=== PATIENT | female | born 1990 | race African-American/Black ===

== ENCOUNTER 2017-02-23 01:40 | Emergency (ER) | payer OTHER ==
[~2017-02-23] VITALS: Ht 162.6 cm; Wt 75.0 kg
[~2017-02-23 01:40] MED LIST: ALBU0.086 INH; ALBU6.7H INH; BUPR-197 PO; HYDR50TA15 PO; LORTA10 PO; MIREIUD IU; NAPR550 PO; SERT-129 PO; ZOFR4TAB3 SL
[2017-02-23 01:42] VITALS: BP 138/91; PULSE 107; RESP 16; TEMP 97.8; O2SAT 99
[2017-02-23] MEDS ORDERED: HYDR50TA94 PO (02:16)
[2017-02-23] MEDS ORDERED: MELO-1 PO (02:16)
[2017-02-23] MEDS ORDERED: BUSP30TA PO (02:16)
[2017-02-23] MEDS ORDERED: SERT-129 PO (02:16)
[2017-02-23] MEDS ORDERED: ZOLP10TA3 PO (02:16)
[2017-02-23] MEDS ORDERED: PRAZ2CAP PO (02:16)
--- NOTE | 2017-02-23 02:21 | PD ---
HPI Chief Complaint: Psychiatric Symptoms Time Seen by Provider: 02:17 Travel History International Travel<30 days: No Contact w/Intl Traveler<30days: No Traveled to known affect area: No History of Present Illness HPI 26-year-old black female presents to emergency department on a voluntary basis requesting psychological evaluation. She states that she is 100% service connected for PTSD. She states that she's been feeling more depressed today and having suicidal thoughts. She was seen at the [facility] 2 days ago but was not feeling suicidal and depressed at that time. She states that she just broke up with her boyfriend which has caused her to feel this way. She states that she plans on getting "very bloody". She declines to elaborate. She denies any homicidal ideation. No toxic ingestions. She denies any alcohol or drugs currently. Denies . PFSH Past Medical History Narrative Medical Asthma, PTSD, DJD Arthritis: No Asthma: Yes Anxiety: Yes Depression: Yes Heart Rhythm Problems: No Cancer: No Cardiovascular Problems: No High Cholesterol: No Chest Pain: No Congestive Heart Failure: No COPD: No Cerebrovascular Accident: No Diabetes: No Diminished Hearing: No Endocrine: No Gastrointestinal Disorders: No Genitourinary: No Hepatitis: No Hiatal Hernia: No Hypertension: No Immune Disorder: No Musculoskeletal: No Neurologic: No Psychiatric: Yes (PTSD) Reproductive: No Respiratory: Yes (ASTHMA) Migraines: No Seizures: No Sleep Apnea: No Thyroid Disease: No Tetanus Vaccination: < 5 Years ?: Not LMP: UNKNOWN : 2 Para: 0 Miscarriage: 0 : 2 Dilation and Curettage (D&C): Yes (X2) Past Surgical History Narrative Surgical Left shoulder arthroscopy, abortions 2 Abdominal Surgery: No AICD: No Cardiac Surgery: No Ear Surgery: No Endocrine Surgery: No Eye Surgery: No Genitourinary Surgery: No Gynecologic Surgery: No Joint Replacement: No Neurologic Surgery: No Oral Surgery: No Pacemaker: No Thoracic Surgery: No Other Surgery: Yes (IUD PLACED) Social History Alcohol Use: Yes Tobacco Use: Yes Substance Use: No Allergies-Medications (Allergen,Severity, Reaction): Coded Allergies: Paroxetine (Verified Allergy, Severe, 03/19/14) Reported Meds & Prescriptions Reported Meds & Active Scripts Active Reported Meloxicam 15 Mg Tab 15 Mg PO DAILY Hydroxyzine HCl 50 Mg Tab 50 Mg PO DAILY Buspirone (Buspirone HCl) 30 Mg Tab 30 Mg PO BID Sertraline (Sertraline HCl) 100 Mg Tab 200 Mg PO DAILY Zolpidem (Zolpidem Tartrate) 10 Mg Tab 5 Mg PO HS PRN Prazosin (Prazosin HCl) 2 Mg Cap 2 Mg PO BID Review of Systems Except as stated in HPI: all other systems reviewed are Neg Psychiatric: Positive: Depression, Suicidal Ideations, Mood Disorder, No: Anxiety, Disorder of Thought, Substance Abuse, Homicidal Ideation Physical Exam Narrative GENERAL: Well-nourished, well-developed patient. SKIN: Warm and dry. HEAD: Normocephalic and atraumatic. EYES: No scleral icterus. No injection or drainage. ENT: No nasal drainage noted. Mucous membranes pink. Airway patent. NECK: Supple, trachea midline. Moves head freely without obvious discomfort. CARDIOVASCULAR: Regular rate and rhythm without murmurs, gallops, or rubs. RESPIRATORY: Breath sounds equal bilaterally. No accessory muscle use. GASTROINTESTINAL: Abdomen soft, non-tender, nondistended. EXTREMITIES: No cyanosis or edema. BACK: Nontender without obvious deformity. No CVA tenderness. NEURO: Patient is alert and oriented. no sensorimotor deficits. Nonfocal. Normal speech. PSYCH: No delusions. No auditory or visual hallucinations. Data Data Last Documented VS Vital Signs Date Time Temp Pulse Resp B/P Pulse Ox O2 Delivery O2 Flow Rate FiO2 02/23/17 01:42 97.8 107 16 138/91 99 Orders Complete Blood Count With Diff (02/23/17 02:16) Comprehensive Metabolic Panel (02/23/17 02:16) Ed Urine Pregnancytest Poc (02/23/17 02:16) Psych Screen (02/23/17 02:16) Drug Screen, Random Urine (02/23/17 02:16) Alcohol (Ethanol) (02/23/17 02:16) Salicylates (Aspirin) (02/23/17 02:16) Tylenol (Acetaminophen) (02/23/17 02:16) MDM Medical Decision Making Medical Screen Exam Complete: Yes Emergency Medical Condition: Yes Medical Record Reviewed: Yes Differential Diagnosis MDM: High Differential diagnoses: Schizophrenia, schizoaffective disorder, bipolar, anxiety, depression, adjustment reaction, mood disorder NOS, ODD, depressive disorder NOS, dementia, dementia with agitation, psychosis NOS, substance induced mood disorder, intermittent explosive disorder, Asperger syndrome, infection,electrolyte abnormality, malingering. Narrative Course Mental health screening discussed with the patient. Psychiatric screen ordered. The patient's been medically cleared. This is medical clearance for psychiatric admission, PTSD Diagnosis Primary Impression: Medical clearance for psychiatric admission Additional Impression: PTSD (post-traumatic stress disorder) Condition: Stable Homero Vila Feb 23, 2017 02:21
[2017-02-23 03:10] LABS: AUTOMATED NEUTROPHIL # 2.2 TH/MM3 (1.8-7.7); BASOPHIL % 0.6 % (0.0-2.0); EOSINOPHIL # 0.1 TH/MM3 (0-0.4); EOSINOPHIL % 1.5 % (0.0-4.0); HEMO FLAGS DIFF FINAL; LYMPH % 53.6 % (9.0-44.0); LYMPHOCYTE # 3.3 TH/MM3 (1.0-4.8); MEAN CELL VOLUME 90.2 FL (80.0-100.0); MEAN CORPUSCULAR HEMOGLOBIN 31.3 PG (27.0-34.0); MEAN CORPUSCULAR HGB CONC 34.7 % (32.0-36.0); MONO % 8.8 % (0.0-8.0); NEUT % 35.5 % (16.0-70.0); PLATELET COUNT 170 TH/MM3 (150-450); RED BLOOD COUNT 3.99 MIL/MM3 (4.00-5.30); RED CELL DISTRIBUTION WIDTH 13.4 % (11.6-17.2); WHITE BLOOD COUNT 6.1 TH/MM3 (4.0-11.0)
[2017-02-23 03:19] LABS: ALT (GPT) 17 U/L (10-53); ANION GAP 7 MEQ/L (5-15); AST (GOT) 19 U/L (15-37); BICARBONATE 23.7 MEQ/L (21.0-32.0); BLOOD UREA NITROGEN 6 MG/DL (7-18); CHLORIDE 108 MEQ/L (98-107); GLOMERULAR FILTRATION RATE 92 ML/MIN (>89); POTASSIUM 3.6 MEQ/L (3.5-5.1); SODIUM (NA) 139 MEQ/L (136-145)
[2017-02-23 03:22] LABS: ACETAMINOPHEN LESS THAN 2.0 MCG/ML (10.0-30.0); ALKALINE PHOSPHATASE 53 U/L (45-117); TOTAL BILIRUBIN ADULT 0.4 MG/DL (0.2-1.0)
[2017-02-23 03:45] VITALS: BP 149/68; PULSE 114; RESP 18; O2SAT 100
[2017-02-23 06:09] VITALS: BP 123/69; PULSE 80; RESP 18; O2SAT 99
[2017-02-23 11:56] VITALS: BP 99/50; PULSE 70; RESP 18
--- NOTE | 2017-02-23 14:33 | PD ---
History of Present Illness Chief Complaint: Psychiatric Symptoms Time Seen by Provider: 14:15 Travel History International Travel<30 Days: No Contact w/Intl Traveler<30days: No Known affected area: No Legal Status Legal Status: Voluntary History of Present Illness: 26-year-old female with history of anxiety, depression and PTSD, treated by the [facility]. Patient presents after the breakup of a relationship with a boyfriend that she was planning to live with. She describes significant anxiety , significant depression, problems sleeping and suicidal ideation. She was planning to move to [place] to live with her sister, who she describes as very supportive. This physician is encouraging her to rely on her sister for support and the patient states that her sister is supportive. The patient however is embarrassed to tell her that she is in the emergency department. Patient also reports her medications are not working as prescribed from the emergency room. Therefore, this physician asked her to stop taking BuSpar, stopped taking hydroxyzine, add Ativan (prescribed by this physician) continue sertraline and increase the dose of Wellbutrin (prescribed by this physician. Patient verbally willing to contract for safety. PFS Past Medical History Arthritis: No Asthma: Yes Anxiety: Yes Depression: Yes Heart Rhythm Problems: No Cancer: No Cardiovascular Problems: No High Cholesterol: No Chest Pain: No Congestive Heart Failure: No COPD: No Cerebrovascular Accident: No Diabetes: No Diminished Hearing: No Endocrine: No Gastrointestinal Disorders: No Genitourinary: No Hepatitis: No Hiatal Hernia: No Hypertension: No Immune Disorder: No Musculoskeletal: No Neurologic: No Psychiatric: Yes (PTSD) Reproductive: No Respiratory: Yes (ASTHMA) Migraines: No Seizures: No Sleep Apnea: No Thyroid Disease: No Tetanus Vaccination: < 5 Years ?: Not LMP: UNKNOWN : 2 Para: 0 Miscarriage: 0 : 2 Dilation and Curettage (D&C): Yes (X2) Past Surgical History Abdominal Surgery: No AICD: No Cardiac Surgery: No Ear Surgery: No Endocrine Surgery: No Eye Surgery: No Genitourinary Surgery: No Gynecologic Surgery: No Joint Replacement: No Neurologic Surgery: No Oral Surgery: No Pacemaker: No Thoracic Surgery: No Other Surgery: Yes (IUD PLACED) Psychiatric History Psychiatric History Hx Psychiatric Treatment: PATIENT WAS LAST ADMITTED TO [facility] FROM 12/07/13 TO 12/11/13 FOR MDD, RECURRECT, SEVERE AND PTSD. HX: PTSD, DEPRESSION, ANXIETY. History of Inpatient Treatment: Yes Guns or firearms in home: No Social History Hx Alcohol Use: Yes Hx Tobacco Use: Yes Hx Substance Use: No Substance Use Type: Alcohol, Marijuana, Nicotine/Cigarettes Hx of Substance Use Treatment: No Allergies-Medications (Allergen,Severity, Reaction): Coded Allergies: Paroxetine (Verified Allergy, Severe, 03/19/14) Reported Meds & Prescriptions Reported Meds & Active Scripts Active Reported Meloxicam 15 Mg Tab 15 Mg PO DAILY Hydroxyzine HCl 50 Mg Tab 50 Mg PO DAILY Buspirone (Buspirone HCl) 30 Mg Tab 30 Mg PO BID Sertraline (Sertraline HCl) 100 Mg Tab 200 Mg PO DAILY Zolpidem (Zolpidem Tartrate) 10 Mg Tab 5 Mg PO HS PRN Prazosin (Prazosin HCl) 2 Mg Cap 2 Mg PO BID Review of Systems Except as stated in HPI: all other systems reviewed are Neg Exam Alert: Yes Sawyer: Person, Place, Date, Situation Mood: Calm Affect: Appropriate Speech: Clear Eye Contact: Normal Memory Intact: Immediate, Recent, Remote Insight/Judgement Adequate MDM Medical Decision Making Medical Record Reviewed: Yes Assessment/Plan 26-year-old female with history of depression, anxiety, PTSD, etc. She and boyfriend broke up and she was having suicidal thoughts. He now denies being suicidal and verbally contracts for safety. Medications were changed and patient was given informed consent. She was encouraged to live with her sister in [place], as she had previously planned prior to breakup. In this physician's opinion, she does not meet Mallory act criteria and does not meet criteria for inpatient psychiatric hospitalization. Orders Complete Blood Count With Diff (02/23/17 02:16) Comprehensive Metabolic Panel (02/23/17 02:16) Ed Urine Pregnancytest Poc (02/23/17 02:16) Psych Screen (02/23/17 02:16) Drug Screen, Random Urine (02/23/17 02:16) Alcohol (Ethanol) (02/23/17 02:16) Salicylates (Aspirin) (02/23/17 02:16) Tylenol (Acetaminophen) (02/23/17 02:16) Diet Regular Basic (02/23/17 Breakfast) Diet Regular Basic (02/23/17 Lunch) Diet Regular Basic (02/23/17 Dinner) Results Vital Signs Date Time Temp Pulse Resp B/P Pulse Ox O2 Delivery O2 Flow Rate FiO2 02/23/17 11:56 70 18 99/50 Room Air 02/23/17 06:09 80 18 123/69 99 Room Air 02/23/17 03:45 114 18 149/68 100 Room Air 02/23/17 01:42 97.8 107 16 138/91 99 Laboratory Tests Test 02/23/17 02:50 White Blood Count 6.1 Red Blood Count 3.99 Hemoglobin 12.5 Hematocrit 36.0 Mean Corpuscular Volume 90.2 Mean Corpuscular Hemoglobin 31.3 Mean Corpuscular Hemoglobin 34.7 Concent Red Cell Distribution Width 13.4 Platelet Count 170 Mean Platelet Volume 8.7 Neutrophils (%) (Auto) 35.5 Lymphocytes (%) (Auto) 53.6 Monocytes (%) (Auto) 8.8 Eosinophils (%) (Auto) 1.5 Basophils (%) (Auto) 0.6 Neutrophils # (Auto) 2.2 Lymphocytes # (Auto) 3.3 Monocytes # (Auto) 0.5 Eosinophils # (Auto) 0.1 Basophils # (Auto) 0.0 CBC Comment DIFF FINAL Differential Comment Sodium Level 139 Potassium Level 3.6 Chloride Level 108 Carbon Dioxide Level 23.7 Anion Gap 7 Blood Urea Nitrogen 6 Creatinine 0.89 Estimat Glomerular Filtration 92 Rate Random Glucose 94 Calcium Level 8.7 Total Bilirubin 0.4 Aspartate Amino Transf 19 (AST/SGOT) Alanine Aminotransferase 17 (ALT/SGPT) Alkaline Phosphatase 53 Total Protein 7.4 Albumin 3.8 Salicylates Level 2.2 Acetaminophen Level LESS THAN 2.0 Ethyl Alcohol Level LESS THAN 3 Diagnosis Primary Impression: Adjustment disorder with mixed disturbance of emotions and conduct Prescriptions Lorazepam (Ativan)1 Mg Tab1 Mg PO DAILY PRN (ANXIETY AND/OR AGITATION) #30 TAB Ref 0 Prov:Joseph Ramos MD 02/23/17 Bupropion HCl ER 24 HR (Wellbutrin Xl 24 HR)300 Mg [id number] Mg PO DAILY #30 TAB Ref 0 Prov:Joseph Ramos MD 02/23/17 Condition: Stable Joseph Ramos MD Feb 23, 2017 14:33
[2017-02-23] MEDS ORDERED: LORA-474 PO (14:39)
[2017-02-23] MEDS ORDERED: WELLTAB39 PO (14:39)
== END 2017-02-23 16:20 | disposition home or self-care (01) ==
LOC: NEPD 01:40 → NEPJ 16:20
DX: Z02.89 Encounter for other administrative examinations (principal); F43.10 Post-traumatic stress disorder, unspecified; F43.25 Adjustment disorder with mixed disturbance of emotions and conduct; F32.9 Major depressive disorder, single episode, unspecified; Z72.0 Tobacco use; Z79.899 Other long term (current) drug therapy; Z86.59 Personal history of other mental and behavioral disorders; Z87.09 Personal history of other diseases of the respiratory system; Z87.39 Personal history of other diseases of the musculoskeletal system and connective tissue
CPT/HCPCS: 80053; 80307; 84703; 85025; 99284

== ENCOUNTER 2017-03-16 20:23 | Emergency (ER) | payer OTHER ==
[~2017-03-16] VITALS: Ht 162.6 cm; Wt 71.0 kg
[~2017-03-16 20:23] MED LIST changes: -ALBU0.086 INH; -ALBU6.7H INH; -BUPR-197 PO; +BUSP30TA PO; -HYDR50TA15 PO; +HYDR50TA94 PO; +LORA-474 PO; -LORTA10 PO; +MELO-1 PO; -MIREIUD IU; -NAPR550 PO; +PRAZ2CAP PO; +WELLTAB39 PO; -ZOFR4TAB3 SL; +ZOLP10TA3 PO
[2017-03-16 20:26] VITALS: BP 126/76; PULSE 92; RESP 15; TEMP 99; O2SAT 99
--- NOTE | 2017-03-16 21:07 | PD ---
Physical Exam Date Seen by Provider: Mar 16, 2017 Time Seen by Provider: 21:06 Narrative 26 yo female here for abdominal pain and side pain. Going on for a few days. Pain is moderate. No other medical issues. No N/V. Vitals stable in triage. Awaiting bed placement Data Data Last Documented VS Vital Signs Date Time Temp Pulse Resp B/P (MAP) Pulse Ox O2 Delivery O2 Flow Rate FiO2 03/16/17 20:26 99.0 92 15 126/76 (93) 99 Room Air [facility] Medical Record Reviewed: Yes Supervised Visit with LIVAN: Binh Escobar Mar 16, 2017 21:07
[2017-03-16 22:07] LABS: BLOOD, URINE NEG (NEG); COMMENT (UR) CULT NOT INDICATED; CULTURE IF INDICATED CULT NOT INDICATED; GLUCOSE,URINE NEG (NEG); KETONE, URINE NEG (NEG); MUCUS URINE FEW /lpf (OCC); NITRITE,URINE NEG (NEG); PH, URINE 5.5 (5.0-8.5); SQUAMOUS EPITHELIAL CELL URINE 3 /hpf (0-5); URINE COLOR YELLOW (YELLW/STRAW)
[2017-03-16 22:28] LABS: AUTOMATED NEUTROPHIL # 2.4 TH/MM3 (1.8-7.7); BASOPHIL % 0.5 % (0.0-2.0); EOSINOPHIL # 0.1 TH/MM3 (0-0.4); EOSINOPHIL % 1.9 % (0.0-4.0); HEMATOCRIT 41.1 % (35.0-46.0); HEMO FLAGS DIFF FINAL; LYMPHOCYTE # 2.5 TH/MM3 (1.0-4.8); MEAN CELL VOLUME 93.6 FL (80.0-100.0); MEAN CORPUSCULAR HEMOGLOBIN 31.1 PG (27.0-34.0); MEAN CORPUSCULAR HGB CONC 33.2 % (32.0-36.0); MONO % 9.8 % (0.0-8.0); NEUT % 42.8 % (16.0-70.0); PLATELET COUNT 178 TH/MM3 (150-450); RED BLOOD COUNT 4.39 MIL/MM3 (4.00-5.30); RED CELL DISTRIBUTION WIDTH 14.2 % (11.6-17.2); WHITE BLOOD COUNT 5.6 TH/MM3 (4.0-11.0)
[2017-03-16 22:40] LABS: ALKALINE PHOSPHATASE 60 U/L (45-117); TOTAL BILIRUBIN ADULT 0.3 MG/DL (0.2-1.0)
[2017-03-16 22:42] LABS: ALT (GPT) 22 U/L (10-53); ANION GAP 7 MEQ/L (5-15); AST (GOT) 19 U/L (15-37); BLOOD UREA NITROGEN 11 MG/DL (7-18); CHLORIDE 106 MEQ/L (98-107); GLOMERULAR FILTRATION RATE 76 ML/MIN (>89); SODIUM (NA) 141 MEQ/L (136-145)
[2017-03-16 23:40] VITALS: BP 125/79; PULSE 68; RESP 14; TEMP 99.1; O2SAT 100
--- NOTE | 2017-03-16 23:41 | PD ---
HPI Chief Complaint: Abdominal Pain Time Seen by Provider: 23:23 Travel History International Travel<30 days: No Contact w/Intl Traveler<30days: No Traveled to known affect area: No History of Present Illness HPI The patient was seen and examined in the presence of the nurse. This patient complains of some pelvic cramping. Duration one day. She also has some vaginal spotting at the same time. Usually she does not have menstrual periods. She has an IUD. No fever. No vaginal discharge. Severity is mild to moderate. No alleviating factors. PFSH Past Medical History Asthma: Yes Anxiety: Yes Depression: Yes Diminished Hearing: No Psychiatric: Yes (PTSD) Respiratory: Yes (athsma) Immunizations Current: No Sleep Apnea: No Thyroid Disease: No Tetanus Vaccination: < 5 Years Influenza Vaccination: Yes ?: Not : 2 Para: 0 Miscarriage: 0 : 2 Dilation and Curettage (D&C): Yes (X2) Past Surgical History Oral Surgery: No Social History Alcohol Use: Yes (socailly) Tobacco Use: Yes Substance Use: No Allergies-Medications (Allergen,Severity, Reaction): Coded Allergies: amoxicillin (Verified Allergy, Severe, rash, 03/16/17) dicloxacillin (Verified Allergy, Severe, rash, 03/16/17) paroxetine (Verified Allergy, Severe, 03/16/17) Reported Meds & Prescriptions Reported Meds & Active Scripts Active Flagyl (Metronidazole) 500 Mg Tab 500 Mg PO TID Ativan (Lorazepam) 1 Mg Tab 1 Mg PO DAILY PRN Wellbutrin Xl 24 HR (Bupropion HCl) 300 Mg Tab 300 Mg PO DAILY Reported Meloxicam 15 Mg Tab 15 Mg PO DAILY Sertraline (Sertraline HCl) 100 Mg Tab 200 Mg PO DAILY Zolpidem (Zolpidem Tartrate) 10 Mg Tab 5 Mg PO HS PRN Prazosin (Prazosin HCl) 2 Mg Cap 2 Mg PO BID Review of Systems General / Constitutional: No: Fever Eyes: No: Visual changes HENT: No: Headaches Cardiovascular: No: Chest Pain or Discomfort Respiratory: No: Shortness of Breath Gastrointestinal: No: Abdominal Pain Genitourinary: Positive: Pelvic Pain, Vaginal Bleeding, No: Dysuria Musculoskeletal: No: Pain Skin: No Rash Neurologic: No: Weakness Psychiatric: No: Depression Endocrine: No: Polydipsia Hematologic/Lymphatic: No: Easy Bruising Physical Exam Narrative GENERAL: Well-nourished, well-developed patient in no apparent distress. SKIN: Focused skin assessment reveals no rash and nodules. Skin is Warm and dry. HEAD: Atraumatic. Normocephalic. EYES: Pupils equal and round. No scleral icterus. No injection or drainage. ENT: No nasal bleeding or discharge. Mucous membranes pink and moist. NECK: Trachea midline. No JVD. CARDIOVASCULAR: Regular rate and rhythm. No murmur appreciated. RESPIRATORY: No accessory muscle use. Clear to auscultation. Breath sounds equal bilaterally. GASTROINTESTINAL: Abdomen soft, non-tender, nondistended. Hepatic and splenic margins not palpable. MUSCULOSKELETAL: No obvious deformities. No clubbing. No cyanosis. No edema. NEUROLOGICAL: Awake and alert. No obvious cranial nerve deficits. Motor grossly within normal limits. Normal speech. PSYCHIATRIC: Appropriate mood and affect; insight and judgment normal. Pelvic: IUD string coming through the cervix as expected. No blood. There is some white discharge in the vault. Wet prep obtained. No adnexal mass or tenderness Data Data Last Documented VS Vital Signs Date Time Temp Pulse Resp B/P (MAP) Pulse Ox O2 Delivery O2 Flow Rate FiO2 03/16/17 23:40 99.1 68 14 125/79 (94) 100 Room Air Orders Orders Complete Blood Count With Diff (03/16/17 21:05) Comprehensive Metabolic Panel (03/16/17 21:05) Lipase (03/16/17 21:05) Urinalysis - C+S If Indicated (03/16/17 21:05) Ed Urine Pregnancytest Poc (03/16/17 21:08) Wet Prep Profile (03/16/17 23:59) Labs Laboratory Tests Test 03/16/17 21:40 03/16/17 22:00 03/16/17 23:59 Urine Color YELLOW Urine Turbidity CLEAR Urine pH 5.5 Urine Specific [place] 1.020 Urine Protein TRACE mg/dL Urine Glucose (UA) NEG mg/dL Urine Ketones NEG mg/dL Urine Occult Blood NEG Urine Nitrite NEG Urine Bilirubin NEG Urine Urobilinogen LESS THAN 2.0 MG/DL Urine Leukocyte Esterase NEG Urine RBC LESS THAN 1 /hpf Urine WBC 1 /hpf Urine Squamous Epithelial Cells 3 /hpf Urine Mucus FEW /lpf Microscopic Urinalysis Comment CULT NOT INDICATED White Blood Count 5.6 TH/MM3 Red Blood Count 4.39 MIL/MM3 Hemoglobin 13.6 GM/DL Hematocrit 41.1 % Mean Corpuscular Volume 93.6 FL Mean Corpuscular Hemoglobin 31.1 PG Mean Corpuscular Hemoglobin Concent 33.2 % Red Cell Distribution Width 14.2 % Platelet Count 178 TH/MM3 Mean Platelet Volume 8.7 FL Neutrophils (%) (Auto) 42.8 % Lymphocytes (%) (Auto) 45.0 % Monocytes (%) (Auto) 9.8 % Eosinophils (%) (Auto) 1.9 % Basophils (%) (Auto) 0.5 % Neutrophils # (Auto) 2.4 TH/MM3 Lymphocytes # (Auto) 2.5 TH/MM3 Monocytes # (Auto) 0.5 TH/MM3 Eosinophils # (Auto) 0.1 TH/MM3 Basophils # (Auto) 0.0 TH/MM3 CBC Comment DIFF FINAL Differential Comment Blood Urea Nitrogen 11 MG/DL Creatinine 1.05 MG/DL Random Glucose 87 MG/DL Total Protein 7.7 GM/DL Albumin 3.9 GM/DL Calcium Level 9.0 MG/DL Alkaline Phosphatase 60 U/L Aspartate Amino Transf (AST/SGOT) 19 U/L Alanine Aminotransferase (ALT/SGPT) 22 U/L Total Bilirubin 0.3 MG/DL Sodium Level 141 MEQ/L Potassium Level 4.0 MEQ/L Chloride Level 106 MEQ/L Carbon Dioxide Level 28.0 MEQ/L Anion Gap 7 MEQ/L Estimat Glomerular Filtration Rate 76 ML/MIN Lipase 131 U/L Clue Cells (Wet Prep) PRESENT Vaginal Trichomonas (Wet Prep) NONE SEEN Vaginal Yeast (Wet Prep) NONE SEEN MDM Medical Decision Making Medical Screen Exam Complete: Yes Emergency Medical Condition: Yes Medical Record Reviewed: Yes Differential Diagnosis PID, ectopic, vaginitis Narrative Course I have reviewed the patient's electronic medical record. CBC is normal Metabolic profile is normal LFTs are normal Lipase is normal Urine is negative Urinalysis is normal Wet prep is positive for clue cells suggesting BV I gave her prescription for Flagyl The patient was advised to follow up with their physician and return if they worsen. Diagnosis Primary Impression: Pelvic pain in female Additional Impression: Bacterial vaginosis Additional Instructions: The patient was advised to follow up with their physician and return if they worsen. Scripts Metronidazole (Flagyl) 500 Mg Tab 500 MG PO TID for Infection, #20 TAB 0 Refills Prov: Bayron Ace MD 03/17/17 Disposition: 01 DISCHARGE HOME Condition: Stable Bayron Ace MD Mar 16, 2017 23:41
[2017-03-17] MEDS ORDERED: METR-1 PO (01:36)
== END 2017-03-17 01:41 | disposition home or self-care (01) ==
LOC: NEPC 20:23
DX: R10.2 Pelvic and perineal pain (principal); N76.0 Acute vaginitis; N93.9 Abnormal uterine and vaginal bleeding, unspecified; Z72.0 Tobacco use; Z87.09 Personal history of other diseases of the respiratory system; Z86.59 Personal history of other mental and behavioral disorders
CPT/HCPCS: 80053; 81001; 83690; 84703; 85025; 87210; 99283

== ENCOUNTER 2017-06-14 21:09 | Emergency (ER) | payer OTHER ==
[~2017-06-14 21:09] MED LIST changes: -BUSP30TA PO; -HYDR50TA94 PO; -MELO-1 PO; +MELO15TA20 PO; +METR-1 PO
[2017-06-14 21:11] VITALS: BP 126/80; PULSE 107; RESP 16; TEMP 97.8; O2SAT 100
[2017-06-14] MEDS ORDERED: OMEP20TA93 PO (21:57)
[2017-06-14] MEDS ORDERED: CETI10 PO (21:57)
--- NOTE | 2017-06-14 22:11 | PD ---
HPI Chief Complaint: Abdominal Pain Time Seen by Provider: 21:59 Travel History International Travel<30 days: No Contact w/Intl Traveler<30days: No Traveled to known affect area: No History of Present Illness HPI 26-year-old female here for evaluation of left lower quadrant abdominal/pelvic pain and vaginal bleeding. The patient reports that her LMP ended about 2 weeks ago and that for the last 9 days she has been having vaginal bleeding. She reports that she goes through about 3 tampons daily. About 2 hours ago she began having left upper quadrant pain which she describes as sharp, constant, moderate, worse with movements and palpation. She denies vaginal discharge other than bleeding. She is sexually active with one partner and believe she is in a monogamous relationship. She does not believe she is . No urinary symptoms. PFSH Past Medical History Asthma: Yes Anxiety: Yes Depression: Yes Diabetes: No Diminished Hearing: No Psychiatric: Yes (PTSD) Respiratory: Yes (athsma) Immunizations Current: No Seizures: No Sleep Apnea: No Thyroid Disease: No ?: Not LMP: CURRENT : 2 Para: 0 Miscarriage: 0 : 2 Dilation and Curettage (D&C): Yes (X2) Past Surgical History Oral Surgery: No Social History Alcohol Use: Yes (socailly) Tobacco Use: Yes (1/3 ppd) Substance Use: No Allergies-Medications (Allergen,Severity, Reaction): Coded Allergies: amoxicillin (Verified Allergy, Severe, rash, 06/14/17) dicloxacillin (Verified Allergy, Severe, rash, 06/14/17) paroxetine (Verified Allergy, Severe, 06/14/17) Reported Meds & Prescriptions Reported Meds & Active Scripts Active Ativan (Lorazepam) 1 Mg Tab 1 Mg PO DAILY PRN Wellbutrin Xl 24 HR (Bupropion HCl) 300 Mg Tab 300 Mg PO DAILY Reported Omeprazole 20 Mg Tab 20 Mg PO DAILY Cetirizine (Cetirizine HCl) 10 Mg Tab 10 Mg PO DAILY Meloxicam 15 Mg Tab 15 Mg PO DAILY Zolpidem (Zolpidem Tartrate) 10 Mg Tab 5 Mg PO HS PRN Prazosin (Prazosin HCl) 2 Mg Cap 2 Mg PO HS Review of Systems Except as stated in HPI: all other systems reviewed are Neg Physical Exam Narrative GENERAL: Well-developed, well-nourished, comfortable, no acute distress. SKIN: Focused skin assessment warm/dry. HEAD: Atraumatic. Normocephalic. EYES: Pupils equal and round. No scleral icterus. No injection or drainage. ENT: Mucous membranes pink and moist. NECK: Trachea midline. No JVD. CARDIOVASCULAR: Regular rate and rhythm. RESPIRATORY: No accessory muscle use. Clear to auscultation. Breath sounds equal bilaterally. GASTROINTESTINAL: Abdomen soft, nondistended. Mild left lower quadrant tenderness without peritoneal signs. Rest of abdomen is soft and nontender. Normal bowel sounds. No hernias. OYSTER CULTURIST: Exam performed with presence of a female nurse. Normal external genitalia. Scant whitish/brownish vaginal discharge coming from cervical os. Normal appearing cervix. No intravaginal lacerations. No CMT or uterine tenderness. Mild left adnexal tenderness without mass. No right adnexal tenderness or mass. MUSCULOSKELETAL: No obvious deformities. No clubbing. No cyanosis. No edema. NEUROLOGICAL: Awake and alert. No obvious cranial nerve deficits. Motor grossly within normal limits. Normal speech. PSYCHIATRIC: Appropriate mood and affect; insight and judgment normal. Data Data Last Documented VS Vital Signs Date Time Temp Pulse Resp B/P (MAP) Pulse Ox O2 Delivery O2 Flow Rate FiO2 06/14/17 21:11 97.8 107 16 126/80 (95) 100 Room Air Orders Orders Complete Blood Count With Diff (06/14/17 22:04) Comprehensive Metabolic Panel (06/14/17 22:04) Gc And Chlamydia Pcr (06/14/17 22:04) Wet Prep Profile (06/14/17 22:04) Urinalysis - C+S If Indicated (06/14/17 22:04) Ed Urine Pregnancytest Poc (06/14/17 22:04) Beta Hcg (Quant/Titer) (06/14/17 23:05) Ketorolac Inj (Toradol Inj) (06/14/17 23:15) Us Pelvis Comp W Dop Transvag (06/14/17 22:04) Labs Laboratory Tests Test 06/14/17 22:20 06/14/17 23:10 White Blood Count 6.8 TH/MM3 Red Blood Count 4.36 MIL/MM3 Hemoglobin 13.8 GM/DL Hematocrit 40.8 % Mean Corpuscular Volume 93.7 FL Mean Corpuscular Hemoglobin 31.6 PG Mean Corpuscular Hemoglobin Concent 33.8 % Red Cell Distribution Width 13.6 % Platelet Count 171 TH/MM3 Mean Platelet Volume 8.5 FL Neutrophils (%) (Auto) 55.1 % Lymphocytes (%) (Auto) 33.0 % Monocytes (%) (Auto) 10.0 % Eosinophils (%) (Auto) 1.4 % Basophils (%) (Auto) 0.5 % Neutrophils # (Auto) 3.7 TH/MM3 Lymphocytes # (Auto) 2.2 TH/MM3 Monocytes # (Auto) 0.7 TH/MM3 Eosinophils # (Auto) 0.1 TH/MM3 Basophils # (Auto) 0.0 TH/MM3 CBC Comment DIFF FINAL Differential Comment Urine Color YELLOW Urine Turbidity CLEAR Urine pH 6.0 Urine Specific [place] 1.026 Urine Protein 30 mg/dL Urine Glucose (UA) NEG mg/dL Urine Ketones NEG mg/dL Urine Occult Blood NEG Urine Nitrite NEG Urine Bilirubin NEG Urine Urobilinogen LESS THAN 2.0 MG/DL Urine Leukocyte Esterase NEG Urine RBC LESS THAN 1 /hpf Urine WBC 1 /hpf Urine Squamous Epithelial Cells 1 /hpf Urine Mucus FEW /lpf Microscopic Urinalysis Comment CULT NOT INDICATED Blood Urea Nitrogen 11 MG/DL Creatinine 0.94 MG/DL Random Glucose 59 MG/DL Total Protein 7.8 GM/DL Albumin 4.0 GM/DL Calcium Level 8.7 MG/DL Alkaline Phosphatase 60 U/L Aspartate Amino Transf (AST/SGOT) 16 U/L Alanine Aminotransferase (ALT/SGPT) 18 U/L Total Bilirubin 0.2 MG/DL Sodium Level 141 MEQ/L Potassium Level 3.7 MEQ/L Chloride Level 105 MEQ/L Carbon Dioxide Level 29.3 MEQ/L Anion Gap 7 MEQ/L Estimat Glomerular Filtration Rate 86 ML/MIN Human Chorionic Gonadotropin, Quant LESS THAN 1 MIU/ML Clue Cells (Wet Prep) NONE SEEN Vaginal Trichomonas (Wet Prep) NONE SEEN Vaginal Yeast (Wet Prep) NONE SEEN MDM Medical Decision Making Medical Screen Exam Complete: Yes Emergency Medical Condition: Yes Differential Diagnosis Abnormal uterine bleeding, ovarian cyst, ovarian torsion, endometriosis, , ectopic Narrative Course Vital signs reviewed. Heart rate improved from 107 to 82. CBC is unremarkable. Specifically hemoglobin is 13.8. CMP is unremarkable. Beta hCG is negative. UA is not suggestive of UTI. Wet prep is negative for use, negative for clue cells, negative for Trichomonas. Pelvic ultrasound: CONCLUSION: 1. 1.1 cm complex cyst at the left ovary with a moderate amount of free fluid. This could be secondary to a ruptured cyst/follicle. It is thought this could be followed. 2. Uterus appears normal. An IUP is not seen. The endometrium is not thickened. Patient was given a dose of IV Toradol and on reassessment she is resting comfortably. She was made aware of all findings. She does have some scant vaginal bleeding, however H&H is normal and her vital signs are within normal limits. At this point she is stable for discharge home with further outpatient follow-up with her STENCIL TYPIST physician this week. She was informed on when to return to the emergency department. She verbalizes understanding and agreement with plan. Diagnosis Primary Impression: Ovarian cyst Qualified Codes: N83.202 - Unspecified ovarian cyst, left side Additional Impression: Abnormal uterine bleeding Referrals: Chargeback Analyst 3 days Additional Instructions: Follow-up with your rfid systems architect this week. Return to the emergency department for worsening symptoms or any other concerns. Disposition: DISCHARGE HOME Condition: Stable Nikko Miles MD Jun 14, 2017 22:11
[2017-06-14 22:34] LABS: AUTOMATED NEUTROPHIL # 3.7 TH/MM3 (1.8-7.7); BASOPHIL % 0.5 % (0.0-2.0); EOSINOPHIL # 0.1 TH/MM3 (0-0.4); EOSINOPHIL % 1.4 % (0.0-4.0); HEMATOCRIT 40.8 % (35.0-46.0); HEMO FLAGS DIFF FINAL; LYMPHOCYTE # 2.2 TH/MM3 (1.0-4.8); MEAN CELL VOLUME 93.7 FL (80.0-100.0); MEAN CORPUSCULAR HEMOGLOBIN 31.6 PG (27.0-34.0); MEAN CORPUSCULAR HGB CONC 33.8 % (32.0-36.0); NEUT % 55.1 % (16.0-70.0); PLATELET COUNT 171 TH/MM3 (150-450); RED BLOOD COUNT 4.36 MIL/MM3 (4.00-5.30); RED CELL DISTRIBUTION WIDTH 13.6 % (11.6-17.2); WHITE BLOOD COUNT 6.8 TH/MM3 (4.0-11.0)
[2017-06-14 22:41] LABS: BLOOD, URINE NEG (NEG); COMMENT (UR) CULT NOT INDICATED; CULTURE IF INDICATED CULT NOT INDICATED; GLUCOSE,URINE NEG (NEG); KETONE, URINE NEG (NEG); MUCUS URINE FEW /lpf (OCC); NITRITE,URINE NEG (NEG); SQUAMOUS EPITHELIAL CELL URINE 1 /hpf (0-5); URINE COLOR YELLOW (YELLW/STRAW)
[2017-06-14 22:58] LABS: ALT (GPT) 18 U/L (10-53); ANION GAP 7 MEQ/L (5-15); AST (GOT) 16 U/L (15-37); BICARBONATE 29.3 MEQ/L (21.0-32.0); BLOOD UREA NITROGEN 11 MG/DL (7-18); CHLORIDE 105 MEQ/L (98-107); GLOMERULAR FILTRATION RATE 86 ML/MIN (>89); POTASSIUM 3.7 MEQ/L (3.5-5.1); SODIUM (NA) 141 MEQ/L (136-145)
[2017-06-14 23:00] LABS: ALKALINE PHOSPHATASE 60 U/L (45-117); TOTAL BILIRUBIN ADULT 0.2 MG/DL (0.2-1.0)
[2017-06-14] MEDS ORDERED: KETOROLAC TROMETHAMINE 30 MG/ML (IVP) VIAL IV PUSH ONE (23:15)
--- NOTE | 2017-06-14 23:29 | RADRPT ---
EXAM DATE/TIME: 06/14/2017 22:36 [facility] COMPARISON: No previous studies available for comparison. INDICATIONS : Left sided pelvic pain. MEDICAL HISTORY : Asthma. Depression. Ectopic. Pelvic pain. SURGICAL HISTORY : Dilation and curettage. Left shoulder surgery. ENCOUNTER: Initial ACUITY: 3 days PAIN SCORE: 8/10 LOCATION: Bilateral pelvis MEASUREMENTS: UTERUS: 6.1 x 3.8 x 2.5 cm cm ENDOMETRIAL STRIPE: 1 mm RIGHT OVARY: 2.8 x 1.1 x 1.0 cm cm LEFT OVARY: 2.5 x 1.8 x 1.2 cm FINDINGS: UTERUS: The myometrium has homogeneous echotexture without mass. RIGHT OVARY: Small cysts measuring up to 1 cm are seen. It is thought these are related to follicles. Normal blood flow is seen. LEFT OVARY: There is a 1.1 x 1.1 x 0.5 cm complex cyst seen. Normal blood flow is seen. MISCELLANEOUS: There is a moderate amount of free fluid seen. CONCLUSION: 1. 1.1 cm complex cyst at the left ovary with a moderate amount of free fluid. This could be secondar y to a ruptured cyst/follicle. It is thought this could be followed. 2. Uterus appears normal. An IUP is not seen. The endometrium is not thickened. Ellis Alvarado MD on June 14, 2017 at 23:24 Board Certified Radiologist. This report was verified electronically.
[2017-06-14 23:38] LABS: BETA HCG QUANT LESS THAN 1 MIU/ML (0-5)
[2017-06-15 01:02] LABS: CHLAMYDIA PCR NOT DETECTED (NOT DETECT); NEISSERIA PCR NOT DETECTED (NOT DETECT)
== END 2017-06-15 00:15 | disposition home or self-care (01) ==
LOC: NEPD 21:09
DX: N83.202 Unspecified ovarian cyst, left side (principal); N93.9 Abnormal uterine and vaginal bleeding, unspecified; R10.12 Left upper quadrant pain; J45.909 Unspecified asthma, uncomplicated; Z72.0 Tobacco use
CPT/HCPCS: 76830; 76856; 80053; 81001; 84702; 84703; 85025; 87210; 87491; 87591; 93975; 96374; 99285; J1885

== ENCOUNTER 2017-10-29 21:14 | Emergency (ER) | payer OTHER ==
[~2017-10-29 21:14] MED LIST changes: +CETI10 PO; -METR-1 PO; +OMEP20TA93 PO; -SERT-129 PO
[2017-10-29] MEDS ORDERED: LIDOCAINE 4% CREAM 5 GM TUBE TOPICAL ONE (21:30)
[2017-10-29] MEDS ORDERED: MORPHINE SULFATE 4 MG/ML INJ IV PUSH ONE (21:30)
[2017-10-29] MEDS ORDERED: ONDANSETRON HCL 4 MG/2 ML VIAL IVP ONE (21:30)
[2017-10-29] MEDS ORDERED: SODIUM CHLORIDE 0.9% FLUSH 10 ML FLUSH IV FLUSH PRN (21:30)
[2017-10-29 21:34] VITALS: BP 134/82; PULSE 83; RESP 18; O2SAT 100
[2017-10-29 21:36] VITALS: PULSE 85; RESP 19; O2SAT 100
--- NOTE | 2017-10-29 21:38 | PD ---
HPI Chief Complaint: Pain: Acute or Chronic Time Seen by Provider: 21:25 Travel History International Travel<30 days: No Contact w/Intl Traveler<30days: No Traveled to known affect area: No History of Present Illness HPI [facility] and has had a endoscopy and colonoscopy performed recently. Apparently she had a rectal biopsy yesterday performed. Today patient comes in complaining of rectal pain and noticed some bleeding on wiping. Allergy to amoxicillin dicloxacillin approximately Patient has a history of asthma, D&C, left shoulder surgery, PTSD, patient is a [employer] , history of depression and anxiety PFSH Past Medical History Asthma: Yes Anxiety: Yes Depression: Yes Diabetes: No Diminished Hearing: No Psychiatric: Yes (PTSD) Respiratory: Yes (athsma) Immunizations Current: No Seizures: No Sleep Apnea: No Thyroid Disease: No : 2 Para: 0 Miscarriage: 0 : 2 Dilation and Curettage (D&C): Yes (X2) Past Surgical History Oral Surgery: No Social History Alcohol Use: Yes (socailly) Tobacco Use: Yes (/ ppd) Substance Use: No Allergies-Medications (Allergen,Severity, Reaction): Coded Allergies: amoxicillin (Verified Allergy, Severe, rash, 06/14/17) dicloxacillin (Verified Allergy, Severe, rash, 06/14/17) paroxetine (Verified Allergy, Severe, 06/14/17) Reported Meds & Prescriptions Reported Meds & Active Scripts Active Ativan (Lorazepam) 1 Mg Tab 1 Mg PO DAILY PRN Wellbutrin Xl 24 HR (Bupropion HCl) 300 Mg Tab 300 Mg PO DAILY Reported Omeprazole 20 Mg Tab 20 Mg PO DAILY Cetirizine (Cetirizine HCl) 10 Mg Tab 10 Mg PO DAILY Meloxicam 15 Mg Tab 15 Mg PO DAILY Zolpidem (Zolpidem Tartrate) 10 Mg Tab 5 Mg PO HS PRN Prazosin (Prazosin HCl) 2 Mg Cap 2 Mg PO HS Review of Systems General / Constitutional: No: Fever Eyes: No: Visual changes HENT: No: Headaches Cardiovascular: No: Chest Pain or Discomfort Respiratory: No: Shortness of Breath Gastrointestinal: Positive: Abdominal Pain, Hematochezia, Other (Rectal pain) Genitourinary: No: Dysuria Musculoskeletal: No: Pain Skin: No Rash Neurologic: No: Weakness Psychiatric: No: Depression Endocrine: No: Polydipsia Hematologic/Lymphatic: No: Easy Bruising Physical Exam Narrative GENERAL: SKIN: Warm and dry. HEAD: Atraumatic. Normocephalic. EYES: Pupils equal and round. No scleral icterus. No injection or drainage. ENT: No nasal bleeding or discharge. Mucous membranes pink and moist. NECK: Trachea midline. No JVD. CARDIOVASCULAR: Regular rate and rhythm. RESPIRATORY: No accessory muscle use. Clear to auscultation. Breath sounds equal bilaterally. GASTROINTESTINAL: Abdomen soft, non-tender, nondistended. Anal fissure on 6:00 location MUSCULOSKELETAL: Extremities without clubbing, cyanosis, or edema. No obvious deformities. NEUROLOGICAL: Awake and alert. No obvious cranial nerve deficits. Motor grossly within normal limits. Five out of 5 muscle strength in the arms and legs. Normal speech. PSYCHIATRIC: Appropriate mood and affect; insight and judgment normal. Data Data Last Documented VS Vital Signs Date Time Temp Pulse Resp B/P (MAP) Pulse Ox O2 Delivery O2 Flow Rate FiO2 10/29/17 21:36 85 19 100 Room Air Orders Orders Complete Blood Count With Diff (10/29/17 21:26) Comprehensive Metabolic Panel (10/29/17 21:) Lipase (10/29/17 21:) Prothrombin Time / Inr (Pt) (10/29/17:) Act Partial Throm Time (Ptt) (10/29/17 21:26) Urinalysis - C+S If Indicated (10/29/17 21:) Ct Abd/Pel W/O Iv Contrast (10/29/17 21:26) Iv Access Insert/Monitor (10/29/17 21:) Ecg Monitoring (10/29/17 21:) Oximetry (10/29/17 21:) NPO (10/29/17 21:26) Morphine Inj (Morphine Inj) (10/29/17 21:30) Ondansetron Inj (Zofran Inj) (10/29/17 21:30) Sodium Chloride 0.9% Flush (Ns Flush) (10/29/17 21:30) Ed Urine Pregnancytest Poc (10/29/17 21:26) Lidocaine 4% Cream (L-M-X 4 Cream) (10/29/17 21:30) Ketorolac Inj (Toradol Inj) (10/29/17 22:15) Labs Laboratory Tests Test 10/29/17 21:40 10/29/17 23:10 White Blood Count 6.4 TH/MM3 Red Blood Count 4.18 MIL/MM3 Hemoglobin 12.9 GM/DL Hematocrit 38.1 % Mean Corpuscular Volume 91.2 FL Mean Corpuscular Hemoglobin 30.9 PG Mean Corpuscular Hemoglobin Concent 33.9 % Red Cell Distribution Width 15.2 % Platelet Count 206 TH/MM3 Mean Platelet Volume 8.2 FL Neutrophils (%) (Auto) 35.8 % Lymphocytes (%) (Auto) 53.3 % Monocytes (%) (Auto) 9.8 % Eosinophils (%) (Auto) 0.7 % Basophils (%) (Auto) 0.4 % Neutrophils # (Auto) 2.3 TH/MM3 Lymphocytes # (Auto) 3.4 TH/MM3 Monocytes # (Auto) 0.6 TH/MM3 Eosinophils # (Auto) 0.0 TH/MM3 Basophils # (Auto) 0.0 TH/MM3 CBC Comment DIFF FINAL Differential Comment Prothrombin Time 11.0 SEC Prothromb Time International Ratio 1.1 RATIO Activated Partial Thromboplast Time 23.5 SEC Blood Urea Nitrogen 10 MG/DL Creatinine 1.02 MG/DL Random Glucose 90 MG/DL Total Protein 7.3 GM/DL Albumin 3.6 GM/DL Calcium Level 8.6 MG/DL Alkaline Phosphatase 46 U/L Aspartate Amino Transf (AST/SGOT) 14 U/L Alanine Aminotransferase (ALT/SGPT) 17 U/L Total Bilirubin 0.3 MG/DL Sodium Level 142 MEQ/L Potassium Level 3.9 MEQ/L Chloride Level 109 MEQ/L Carbon Dioxide Level 29.1 MEQ/L Anion Gap 4 MEQ/L Estimat Glomerular Filtration Rate 78 ML/MIN Lipase 97 U/L Urine Color YELLOW Urine Turbidity HAZY Urine pH 7.0 Urine Specific [place] 1.018 Urine Protein NEG mg/dL Urine Glucose (UA) NEG mg/dL Urine Ketones NEG mg/dL Urine Occult Blood NEG Urine Nitrite NEG Urine Bilirubin NEG Urine Urobilinogen LESS THAN 2.0 MG/DL Urine Leukocyte Esterase NEG Urine Squamous Epithelial Cells <1 /hpf Urine Amorphous Sediment OCC Urine Mucus FEW /lpf Microscopic Urinalysis Comment CULT NOT INDICATED MDM Medical Decision Making Medical Screen Exam Complete: Yes Emergency Medical Condition: Yes Medical Record Reviewed: Yes Differential Diagnosis Anal fissure versus colitis versus perforation Narrative Course CBC shows no leukocytosis, no anemia, normal platelet count, no left shift Regulation profile within normal limits Electrolytes are all within normal limits, kidney within normal limits lipase and liver within normal limits UA is negative for UTI CT abdomen pelvis has a small nonspecific free fluid but no obstruction or evidence of perforation otherwise negative as per radiology report Diagnosis Primary Impression: Anal fissure without fistula Patient Instructions: Anal Fissure (ED), General Instructions Scripts Lidocaine Rectal (Lidocaine Rectal) 5 % Cream 1 APPLIC RECTAL DAILY Y for PAIN, #1 TUBE 0 Refills Prov: Mir Trivedi MD 10/30/17 Disposition: 01 DISCHARGE HOME Condition: Stable Mir Trivedi MD Oct 29, 2017 21:38
[2017-10-29 21:56] LABS: AUTOMATED NEUTROPHIL # 2.3 TH/MM3 (1.8-7.7); BASOPHIL % 0.4 % (0.0-2.0); EOSINOPHIL % 0.7 % (0.0-4.0); HEMATOCRIT 38.1 % (35.0-46.0); HEMOGLOBIN 12.9 GM/DL (11.6-15.3); LYMPH % 53.3 % (9.0-44.0); LYMPHOCYTE # 3.4 TH/MM3 (1.0-4.8); MEAN CELL VOLUME 91.2 FL (80.0-100.0); MEAN CORPUSCULAR HEMOGLOBIN 30.9 PG (27.0-34.0); MEAN CORPUSCULAR HGB CONC 33.9 % (32.0-36.0); MEAN PLATELET VOLUME 8.2 FL (7.0-11.0); MONO % 9.8 % (0.0-8.0); MONOCYTE # 0.6 TH/MM3 (0-0.9); NEUT % 35.8 % (16.0-70.0); PLATELET COUNT 206 TH/MM3 (150-450); RED BLOOD COUNT 4.18 MIL/MM3 (4.00-5.30); RED CELL DISTRIBUTION WIDTH 15.2 % (11.6-17.2); WHITE BLOOD COUNT 6.4 TH/MM3 (4.0-11.0)
[2017-10-29 22:03] LABS: INTERNATIONAL NORMALIZED RATIO 1.1 RATIO
[2017-10-29 22:09] LABS: ALBUMIN 3.6 GM/DL (3.4-5.0); ALT (GPT) 17 U/L (10-53); AST (GOT) 14 U/L (15-37); BICARBONATE 29.1 MEQ/L (21.0-32.0); BLOOD UREA NITROGEN 10 MG/DL (7-18); CALCIUM 8.6 MG/DL (8.5-10.1); CHLORIDE 109 MEQ/L (98-107); CREATININE 1.02 MG/DL (0.50-1.00); GLOMERULAR FILTRATION RATE 78 ML/MIN (>89); GLUCOSE,RANDOM 90 MG/DL (74-106); SODIUM (NA) 142 MEQ/L (136-145)
[2017-10-29 22:11] LABS: ALKALINE PHOSPHATASE 46 U/L (45-117); TOTAL BILIRUBIN ADULT 0.3 MG/DL (0.2-1.0); TOTAL PROTEIN 7.3 GM/DL (6.4-8.2)
[2017-10-29] MEDS ORDERED: KETOROLAC TROMETHAMINE 30 MG/ML (IVP) VIAL IV PUSH ONE (22:15)
--- NOTE | 2017-10-29 23:06 | RADRPT ---
EXAM DATE/TIME: 10/29/2017 22:44 [facility] COMPARISON: No previous studies available for comparison. INDICATIONS : Left flank pain and rectal pain post surgery. ORAL CONTRAST: No oral contrast ingested. RADIATION DOSE: 6.74 CTDIvol (mGy) MEDICAL HISTORY : Asthma SURGICAL HISTORY : unspecified rectal surgery; D&C ENCOUNTER: Initial ACUITY: 1 day PAIN SCALE: 7/10 LOCATION: abdomen TECHNIQUE: Volumetric scanning of the abdomen and pelvis was performed. Using automated exposure control and ad justment of the mA and/or kV according to patient size, radiation dose was kept as low as reasonably achievable to obtain optimal diagnostic quality images. DICOM format image data is available electro nically for review and comparison. FINDINGS: LOWER LUNGS: The visualized lower lungs are clear. LIVER: Homogeneous density without lesion. There is no dilation of the biliary tree. No calcified gallston es. SPLEEN: Normal size without lesion. PANCREAS: Within normal limits. KIDNEYS: Normal in size and shape. There is no mass, stone, or hydronephrosis. ADRENAL GLANDS: Within normal limits. VASCULAR: There is no aortic aneurysm. BOWEL/MESENTERY: The stomach, small bowel, and colon demonstrate no acute abnormality. ABDOMINAL WALL: Within normal limits. RETROPERITONEUM: There is no lymphadenopathy. BLADDER: No wall thickening or mass. REPRODUCTIVE: Small, low attenuation free fluid in the pelvic cul-de-sac. Small fluid in the adjacent lower rectum. Nothing organized or drainable. No free air seen. No adnexal mass demonstrated. There is a 90 D. INGUINAL: There is no lymphadenopathy or hernia. MUSCULOSKELETAL: Within normal limits for patient age. CONCLUSION: Small, nonspecific free fluid. Otherwise negative. No obstruction or evidence of perforation. Ellis Garcia MD on October 29, 2017 at 23:02 Board Certified Radiologist. This report was verified electronically.
[2017-10-29 23:27] LABS: AMORPHOUS SEDIMENT, URINE OCC; BILIRUBIN, URINE NEG (NEG); BLOOD, URINE NEG (NEG); GLUCOSE,URINE NEG (NEG); KETONE, URINE NEG (NEG); MUCUS URINE FEW /lpf (OCC); NITRITE,URINE NEG (NEG); SQUAMOUS EPITHELIAL CELL URINE <1 /hpf (0-5); URINE COLOR YELLOW (YELLW/STRAW); URINE LEUKOCYTE ESTERASE NEG (NEG)
[2017-10-30] MEDS ORDERED: LIDO4CRE5 RECTAL (00:12)
== END 2017-10-30 01:02 | disposition home or self-care (01) ==
LOC: NEPD 21:14
DX: K60.2 Anal fissure, unspecified (principal); Z98.890 Other specified postprocedural states; J45.909 Unspecified asthma, uncomplicated; F43.10 Post-traumatic stress disorder, unspecified; F17.210 Nicotine dependence, cigarettes, uncomplicated; Z88.1 Allergy status to other antibiotic agents; Z88.8 Allergy status to other drugs, medicaments and biological substances; Z79.899 Other long term (current) drug therapy
CPT/HCPCS: 74176; 80053; 81001; 83690; 84703; 85025; 85610; 85730; 96374; 96375; 99284; J1885; J2405